=== PATIENT | female | born 1985 | race Caucasian/White ===

== ENCOUNTER 2025-03-22 12:33 | Emergency (ER) | payer OTHER, SELFPAY ==
[2025-03-22 12:34] VITALS: BP 149/91; PULSE 83; RESP 16; TEMP 36.9; O2SAT 100; BMI 26.6
--- NOTE | 2025-03-22 13:39 | ED.VIS.FEGU ---
HPI HPI - Female History of Present Illness Chief Complaint: Vag Bleeding Informant: patient Pain Pain: Positive for Pelvic Pain Onset: Today Context: Sudden Onset Timing: Waxes and wanes Quality: Positive for Aching and Sharp (Pressure) Location: Suprapubic Worsened by: - (Nothing) Relieved by: NSAIDS Bleeding Issue: Positive for Vaginal bleeding and Passing clots Onset: Today Context: Sudden Onset Timing: Continuous Current Severity: Heavy Associated Symptoms Associated Symptoms: Negative for Dysuria or Frequency Narrative Narrative: Patient presents with vaginal bleeding and passing clots that began today. Patient states she has lower abdominal pain. Patient describes it as sharp and pressure. Patient states it is also aching at times. Patient states it is mainly over the lower abdomen. Patient states this pain is different than her pain from her ovarian cyst. Patient states that she started her normal menstrual period yesterday. Patient states she started having heavy bleeding and clots today. Patient denies any dysuria or frequency. Patient states she feels weak. Patient admits to some nausea and vomiting. Patient states her pain radiates into her lower back. [facility] Medical History (Updated 03/22/25 @ 16:[address] Frank Gage DO) Ovarian cyst Uterine fibroid Endometriosis Home Medications ?Medication ?Instructions ?Recorded ?Last Taken ?Type NK 08/14/24 Unknown History Allergy/AdvReac Type Severity Reaction Status Date / Time No Known Allergies Allergy Unverified 08/14/24 06:38 Family History Father Testicular cancer Brother Testicular cancer Uncle Testicular cancer Other Cancer Surgical History S/P cholecystectomy S/P T&A (status post tonsillectomy and adenoidectomy) History of kidney surgery Social History adopted: No household members: spouse housing: house number of children: 0 current occupational status: employed current occupation: [employer] current occupational exposures/hazards: No pets and animals: Yes pets and animals: dog(s) and horse(s) sexually active: Yes Smoking Status: Never smoker alcohol intake: current substance use type: does not use diet: gluten free well-balanced diet: daily or most days caffeine: Yes Type: coffee Number of servings: 3 eating out: rarely or never during the past year weight has: remained stable what type of physical activity do you participate in: none juanita/muslim: Confucianist seatbelt use: always do you feel safe at home: Yes additional social history: - Gavin {William } ROS ROS ED Constitutional Constitutional ED: Denies chills or fever(s) Eyes Eyes: Denies blurry vision or change in vision ENT ENT ED: Denies rhinorrhea or sore throat Cardiovascular Cardiovascular: Denies chest pain or palpitations Respiratory/Chest Respiratory/Chest: Reports dyspnea; Denies cough Gastrointestinal Gastrointestinal: Reports abdominal pain, nausea and vomiting Genitourinary Genitourinary ED: Denies dysuria or hematuria Musculoskeletal Musculoskeletal: Reports back pain; Denies neck pain Integumentary Denies abscess or rash Neurologic Neurologic: Denies headache(s) or weakness Allergic/Immunologic Allergic/Immunologic ED: Denies mouth swelling or urticaria EXAM Physical Exam Const Vital Signs: 03/22/25 12:34 03/22/25 14:33 03/22/25 16:00 Temperature 98.5 F Temperature Source Oral Pulse Rate 83 71 Respiratory Rate 16 Blood Pressure 149/91 H 145/91 H 152/93 H Blood Pressure Mean 110 109 112 Pulse Ox 100 100 100 Oxygen Delivery Method Room Air Room Air Room Air Positive well nourished and well developed General Appearance ED: well developed and NAD HEENT Reports moist mucous membranes Neck supple and no JVD Resp normal respiratory effort and clear to auscultation bilaterally Cardio regular rate and regular rhythm GI soft to palpation and non-distended Palpation: tender LLQ, RLQ and suprapubic; Negative for guarding Neuro oriented x3, CN's II-XII intact bilaterally and no sensory deficits noted Sensorium / Orientation: alert Motor Exam: strength 5/5 throughout Psych mental status grossly normal MDM MDM MDM Narrative Medical decision making narrative: Differential diagnosis includes ectopic , ovarian cyst, menorrhagia, spontaneous , coagulopathy, and urinary tract infection. CBC will be obtained to assess for leukocytosis and anemia. Basic metabolic profile will be obtained to assess for electrolyte abnormality and renal function. Urinalysis will be obtained to assess for urinary tract infection and hematuria. Serum hCG will be obtained to assess for . CT scan of the abdomen and pelvis will be obtained to assess for ovarian cyst and abscess. History & Record Review Additional record(s) reviewed:: Prior outpatient record Lab Data Attestation: I reviewed the patient's lab results. Lab results narrative: CBC was reviewed. There is a mild leukocytosis of 13.9. Hemoglobin was 8.5 and hematocrit was 29.2. There are no prior labs for comparison. PT with INR and PTT were reviewed and were within normal limits. Basic metabolic profile was reviewed and was within normal limits. Serum hCG was reviewed and was negative. Urinalysis was reviewed. Occult blood was 250 with greater than 100 red blood cells noted. There is no evidence of urinary tract infection. Labs: Laboratory Results - last 24 hr 03/22/25 03/22/25 13:55 14:05 WBC 13.9 H RBC 4.31 Hgb 8.5 L Hct 29.2 L MCV 67.7 L MCH 19.7 L MCHC 29.1 L RDW Std Deviation 41.0 RDW Coeff of Sivan 17.0 H Plt Count 313 MPV 11.3 Immature Gran % (Auto) 0.200 Neut % (Auto) 82.1 H Lymph % (Auto) 12.8 L Crawford % (Auto) 4.2 Eos % (Auto) 0.3 Baso % (Auto) 0.4 Absolute Neuts (auto) 11.4 H Absolute Lymphs (auto) 1.78 Nucleated RBC % 0 PT 12.7 INR 0.9 APTT 25.9 Sodium 139 Potassium 4.1 Chloride 103 Carbon Dioxide 22.8 Anion Gap 13 BUN 13 Creatinine 0.66 L Estim Creat Clear Calc 112.28 Est GFR (MDRD) Non-Af 116 BUN/Creatinine Ratio 19.0 Glucose 95 Calcium 9.4 Serum , Qual NEGATIVE Urine Color Yellow Urine Clarity Cloudy Urine pH 7.0 Ur Specific [place] 1.010 Urine Protein 30 H Urine Glucose (UA) Normal Urine Ketones Negative Urine Occult Blood 250 H Urine Nitrite Negative Urine Bilirubin Negative Urine Urobilinogen Normal Ur Leukocyte Esterase 25 H Urine RBC > 100 SEEN Urine WBC 0-5 SEEN Ur Squamous Epith Cells 0-5 SEEN Urine Bacteria RARE Urine Mucus 0 SEEN Radiography Diagnostic Testing: Clinical Impression(s) from Imaging Studies Abdomen/Pelvis CT 03/22/25 15:10 IMPRESSION: 1. No acute abdominopelvic finding. 2. Enlarged globular uterus with multiple fibroids. Reading Location: [facility] CT scan of the abdomen and pelvis was obtained. There is an enlarged uterus with multiple fibroids. There is no acute abnormality noted. There is no free fluid or free air. This was interpreted by the radiologist and was also independently reviewed by myself. Treatment and Re-Evaluation Narrative: Patient was given IV fluids, morphine, and Zofran. Patient did not want to morphine. Patient was given a dose of ibuprofen instead. Patient was feeling better on reevaluation. Patient was advised of her findings. Patient was given referral for [employer]. Patient was instructed to return if worse in any way. Patient understood and was agreeable with the plan. All questions were answered. Discharge Plan Triage Chief Complaint: Vag Bleeding ED Provider: Frank Gage Dx/Rx/DC Orders Clinical Impression: Menorrhagia, Uterine fibroid Instructions: ED Heavy Menstrual Bleeding Prescriptions: No Action NK Primary Care Provider: Care Physician,No Primary Referrals: Ana Pereyra MD [Med Staff - Active Staff] - 3-5 Days NOT,DEFINED [Non-Staff] - Print Language: Nepali Disposition Disposition: Home, Self Care
[2025-03-22] MEDS: Ondansetron 4 MG/2 ML Vial IV (13:54)
[2025-03-22] MEDS: 0.9% Normal Saline (1000mL) 1,000 ML 1000 ML IV (13:56)
[2025-03-22 14:03] LABS: Absolute Lymphocyte Count 1.78 X10^3/uL (0.83-4.51); Absolute Neutrophil Count 11.4 X10^3/uL (2.0-7.7); Basophil# 0.06 X10^3/uL; Basophil% 0.4 % (0-1); Eosinophil# 0.04 X10^3/uL; Eosinophils% 0.3 % (0-5); Hematocrit 29.2 % (37-47); Hemoglobin 8.5 g/dL (12.0-15.0); Lymphocyte # 1.78 X10^3/ul (0.83-4.51); Lymphocyte % 12.8 % (19-41); Mean Corp Hgb Conc 29.1 g/dL (32-36); Mean Corpuscular Hgb 19.7 pg (27.0-32.0); Mean Corpuscular Volume 67.7 fL (81-99); Mean Platelet Vol. 11.3 fl (6.2-12.0); Monocyte# 0.58 X10^3/uL; Monocyte% 4.2 % (0-10); NRBC Flagged by Analyzer 0 % (0-5); Neutrophil # 11.38 X10^3/uL (2.7-7.7); Neutrophil % 82.1 % (47-70); Platelet Count 313 K/mm3 (150-450); Red Blood Count 4.31 M/mm3 (4.2-5.4); White Blood Count 13.9 K/mm3 (4.4-11.0)
[2025-03-22] MEDS: Ibuprofen 600 MG Tablet PO (14:06)
[2025-03-22 14:13] LABS: Mucous, Urine 0 SEEN /hpf (<or=2+)
[2025-03-22 14:16] LABS: International Normalized Ratio 0.9; Prothrombin Time (Protime)PT. 12.7 SECONDS (11.7-14.9)
[2025-03-22 14:17] LABS: Partial Thromboplast Time 25.9 Seconds (24.1-36.2)
[2025-03-22 14:18] LABS: Color, Urine Yellow (Yellow); Glucose, Dipstick Normal (Normal); Ketone-Dipstick Negative (Negative); Leukocyte Esterase-Dipstick 25 /ul (Negative); Nitrite-Dipstick Negative (Negative); Occult Blood-Urine 250 /ul (Negative); Protein-Dipstick 30 mg/dl (Negative); Urine Bilirubin Dipstick Negative (Negative); Urine Clarity Cloudy (Clear); Urine Urobilinogen Normal (Normal)
[2025-03-22 14:23] LABS: Internal QC Validated? YES +Cl - CLEAR BKGD
[2025-03-22 14:24] LABS: Pregnancy, Serum, hCG Quali. NEGATIVE Negative
[2025-03-22 14:33] VITALS: BP 145/91; PULSE 71; O2SAT 100
[2025-03-22 14:33] LABS: Bacteria RARE /hpf (None Seen); Red Blood Cells-Urine > 100 SEEN /hpf (0-5); Squamous Epithelial Cells - UA 0-5 SEEN /hpf (5-10); White Blood Cells 0-5 SEEN /hpf (0-5)
[2025-03-22 14:50] LABS: Anion Gap 13 (5-15); BUN 13 mg/dL (4-19); Calcium,Total 9.4 mg/dL (7.6-11.0); Carbon Dioxide 22.8 mmol/L (21.0-32.0); Chloride 103 mmol/L (98-108); Creatinine, Serum 0.66 mg/dL (0.70-1.20); EST Glomerular Filtration Rate 116 (>60); Estimated Creatinine Clearance 112.28 ml/min (50-250); Glucose 95 mg/dL (70-99); Potassium 4.1 mmol/L (3.3-5.1); Sodium Level 139 mmol/L (133-145)
--- NOTE | 2025-03-22 15:10 | CT_ITS ---
PROCEDURE: ABDOMEN/PELVIS W IV CONT ONLY 03/22/2025 REASON FOR EXAM: PELVIC PAIN TECHNIQUE: Abdomen and pelvis CT with intravenous contrast. Coronal and Sagittal reconstruction series were provided. PATIENT PREPARATION: Per protocol ORAL CONTRAST TYPE: None. CONTRAST: Isovue 370 VOLUME: 100 mL One or more dose reduction techniques were used (e.g., Automated exposure control, adjustment of the mA and/or kV according to patient size, use of iterative reconstruction technique. RADIATION DOSE SUMMARY: CTDlvol: 24 mGy DLP: 700 mGycm COMPARISON: None. FINDINGS: Lung bases: Unremarkable. Liver: The liver is normal in size without focal hepatic mass. The major portal veins are patent. No biliary ductal dilation. Gallbladder: Prior cholecystectomy. Spleen: Unremarkable. No suspicious lesions. Pancreas: Unremarkable. Adrenals: No adrenal mass. Kidneys: Asymmetric atrophy of the left kidney with dilation of the left renal collecting system. The right kidney is unremarkable. No hydronephrosis. Bladder: Distended and unremarkable. Reproductive Organs: Enlarged, globular uterus with multiplefibroids. Right physiologic ovarian corpus luteum. Bowel: The bowel loops are normal in caliber. No ascites or pneumoperitoneum. Normal appendix. Lymph nodes: No suspicious lymph node enlargement. Vasculature: The abdominal aorta and IVC are normal. Bones: No aggressive osseous lesions. CT/Abdomen/Pelvis W IV Cont ONLY IMPRESSION: 1. No acute abdominopelvic finding. 2. Enlarged globular uterus with multiple fibroids. Reading Location: [id number]
--- NOTE | 2025-03-22 15:30 | CM.ED ---
Social Work Date of referral: 03/22/15 Reason for referral: Not identified as being established with a PCP Referred by: Social Work Identification Patient provided consent to social work visit. Patient stated she does have a PCP in [place], Dr. Isael Sinha whom patient stated she saw last year. Patient confirmed she would like to get established with a local PCP. [facility] provided patient with written information on the [facility] and also provided verbal education on how member can contact her insurance company to get a list of in-network providers which patient verbalized she understood. Patient stated she has been stressed at her new job, is anxious about her high blood pressure and has been struggling with getting with her . [employer] [facility] provided emotional support and comfort which patient expressed appreciation for. No other concerns/needs identified at this time. Azul Toney, CERTIFIED NURSE, NON FERROUS MATERIAL HAND[employer]ER
[2025-03-22 16:00] VITALS: BP 152/93; O2SAT 100
[2025-03-22 16:24] VITALS: BP 154/95; PULSE 85; RESP 16; TEMP 36.9; O2SAT 100
[2025-03-22 16:33] VITALS: BP 154/95; PULSE 85; RESP 16; TEMP 36.9; O2SAT 100
== END 2025-03-22 16:33 | disposition home or self-care (01) ==
PROVIDERS: Emergency Provider Emergency Medicine; Visit Provider Emergency Medicine
DX: N92.0 Excessive and frequent menstruation with regular cycle (principal); D25.9 Leiomyoma of uterus, unspecified; R11.2 Nausea with vomiting, unspecified; R06.00 Dyspnea, unspecified; R10.9 Unspecified abdominal pain; M54.9 Dorsalgia, unspecified; D72.829 Elevated white blood cell count, unspecified; N85.2 Hypertrophy of uterus
CPT/HCPCS: 74177; 80048; 81001; 84703; 85025; 85610; 85730; 96361; 96374; 99283; Q9967; J2405